=== PATIENT | male | born 1955 | race African-American/Black ===

== ENCOUNTER 2018-02-05 10:44 | Emergency (ER) | payer MEDICARE, BC ==
[2018-02-05 11:34] LABS: Urine Appearance Cloudy; Urine Blood 3+ (Negative); Urine Color Yellow; Urine Ketones Negative (Negative); Urine Protein 1+(30 mg/dL) (Negative); Urine Specific Gravity 1.017 (1.010-1.030); Urine Urobilinogen Negative (Negative)
[2018-02-05] MEDS ORDERED: Ketorolac INJ* 60 MG/2 ML VIAL IM ONE (12:18)
[2018-02-05 12:40] LABS: Hematocrit 42 % (42-52); Hemoglobin 14.3 g/dl (14.0-18.0); Mean Corpuscular HGB Conc 34 g/dl (31-36); Mean Corpuscular Hemoglobin 31 pg (27-31); Mean Corpuscular Volume 91 fL (80-94); Mean Platelet Volume 7.7 um3 (7.4-10.4); Platelet Count 179 10^3/ul (150-450); Red Blood Count 4.61 10^6/ul (4.0-5.4); Red Cell Distribution Width 14 % (10.5-15); White Blood Count 7.4 10^3/ul (3.5-10.8)
[2018-02-05] MEDS ORDERED: NS 0.9% 1000 ML* 1,000 ML IV ONE (12:43)
[2018-02-05] MEDS ORDERED: Ketorolac INJ* 30 MG/ML 1 ML VIAL IV PUSH ONE (12:44)
[2018-02-05 12:50] LABS: INR 0.9 (0.77-1.02)
--- NOTE | 2018-02-05 13:13 | RAD ---
INDICATION: LEFT flank pain and periumbilical pain for a week. Dark red urine. COMPARISON: No relevant prior exams available on the [facility] [place] PACS for comparison. TECHNIQUE: Multidetector CT images were obtained from the lung bases to the ischial tuberosities. Evaluation of the viscera is limited without IV contrast. Multiplanar reformation. REPORT: Unremarkable visualized inferior thorax. Approximate 4 circumscribed water density hepatic lesions are present with dominant 1.5 cm lesion at the LEFT medial hepatic segment most consistent with benign cysts. No CT abnormality of the unenhanced gallbladder, pancreas, spleen. Negative for CT abnormality of the upper GI, small bowel, or retrocecal appendix. Mild diverticulosis of the colon without acute inflammatory change. Negative for ascites or free air. Small fat-containing umbilical hernia without inflammatory change. Normal adrenal glands. Cortical scarring with volume loss and few punctate probable dystrophic calcifications at the upper pole of the RIGHT kidney. Negative for urolithiasis or hydronephrosis. Unremarkable nondilated ureters and partially distended urinary bladder. Symmetric seminal vesicles. Negative for lymphadenopathy. Atherosclerotic calcification of the abdominal aorta and iliac arteries without aneurysm. Physiologic distention of the IVC. Negative for suspicious osseous lesions. Postsurgical change of posterior L4-L5 and L5-S1 fusion. IMPRESSION: 1. Normal appendix documented. 2. Mild diverticulosis of the colon without acute inflammatory change. 3. Small fat-containing umbilical hernia without inflammatory change. 4. Cortical scarring at the upper pole of the RIGHT kidney. 5. Negative for urolithiasis or hydronephrosis.
[2018-02-05 13:14] LABS: EGFR Non-African American 57.8 (>60)
[2018-02-05 14:54] VITALS: BP 148/103
--- NOTE | 2018-02-05 15:16 | CONS ---
NEPHROLOGY CONSULTATION: DATE OF CONSULT: 02/05/18 HISTORY OF PRESENT ILLNESS: Mr. Miller is a 62-year-old gentleman who has a 2-day history of [employer] colored urine. He does not have significant dysuria or frequency. He has been drinking a great deal of water, so he does have high urinary volume. While he does complain of chronic low back pain, he really does not complain of costovertebral angle pain. He has had no fevers or chills, but 2 weeks ago, both he and his did have a febrile infectious illness which presented like pharyngitis. PAST MEDICAL HISTORY: His previous medical history is significant for long history of hypertension. He has a history of hyperlipidemia. He has had 2 surgeries on his back. SOCIAL HISTORY: He is . He has a son at [employer]. He is retired. REVIEW OF SYSTEMS: No visual defects. No swallowing difficulties. No heat or cold intolerance. No chest pain or shortness of breath. He has been having mid umbilical pain for about a week, but he states that the color change of his urine really has only been for 2 days. He has had no change in his bowel habits. No nausea or vomiting. No neuropathy. No muscle aches or pains. PHYSICAL EXAM: He is a well-developed, slightly obese black gentleman who actually appears fairly comfortable to me. He weighed 95-1/4 kilos. His blood pressure is 92/52 with a pulse of 52, respirations are 16. Most of the time, his blood pressures here have been in the 120 systolic range on the monitor. HEENT: He is normocephalic. His extraocular muscles are intact. His mucous membranes are moist. There is no jugular venous distention. His chest is clear. The heart revealed a regular rhythm without murmurs. The abdomen is soft and nontender. Bowel sounds are positive. There is no CVA tenderness. Bones, joints, extremities revealed no cyanosis, clubbing, or edema. Of significance, there is no evidence of embolic disease to his periphery. DIAGNOSTIC STUDIES/LAB DATA: A review of his laboratory studies reveals a white count of 7.4, INR of 0.9, sodium 136, potassium 3.8, total CO2 of 25, chloride 104, BUN 18, creatinine 1.24. He has been told in the past he has stage 1 chronic kidney disease. His urinalysis is significant in that he has 1 + protein, 3+ blood, 3+ rbc's and is otherwise unremarkable. He has had a CT scan of the abdomen and pelvis, which reveals some lobular scarring to the upper pole of the right kidney. There is some intravascular calcifications noted. IMPRESSION: Gross hematuria. At the present time, I do not think he requires admission to the hospital. He does, however, require urologic evaluation before any nephrologic evaluation. Clearly, it is a long differential diagnosis for the gross hematuria. I have told him that he should be checking in with his family physician on his arrival back to [place] and that there probably should be a referral to one of the urologists to begin the evaluation. At present, I do not see that there is any need to treat him with antibiotics for urinary tract infection. I have discussed the case with Dr. Mansfield. [id number] #: [id number]
== END 2018-02-05 14:53 | disposition home or self-care (01) ==
LOC: ED 10:44
DX: R31.0 Gross hematuria (principal); K57.90 Diverticulosis of intestine, part unspecified, without perforation or abscess without bleeding; K42.9 Umbilical hernia without obstruction or gangrene
CPT/HCPCS: 36415; 74176; 80053; 81003; 81015; 82550; 83874; 85027; 85610; 85730; 96372; 96374; 99282; J1885